=== PATIENT | female | born 1990 | race Two or more races ===

== ENCOUNTER 2019-04-14 12:12 | Emergency (ER) | payer OTHER ==
[~2019-04-14] VITALS: Ht 167.6 cm; Wt 52.2 kg
--- NOTE | 2019-04-14 12:20 | NUR ---
PATIENT IS AWAKE AND ALERT. URINE SENT TO LAB
[2019-04-14] MEDS ORDERED: IBUPROFEN 800 MG TABLET ONE (13:13)
[2019-04-14] MEDS ORDERED: IBUPROFEN 800 MG TABLET PO ONE (13:15)
[2019-04-14 13:20] LABS: *BILIRUBIN,URIN 1+ (NEGATIVE); *BLOOD, URINE NEGATIVE (NEGATIVE); *CLARITY,URINE CLEAR (CLEAR); *COLOR,URINE YELLOW (YELLOW); *KETONES,URINE NEGATIVE (NEGATIVE); *UROBILINOGEN,URINE 0.2 E.U./dl (NORMAL); LEUKOCYTE ESTERASE ,URINE NEGATIVE (NEGATIVE); NITRITE, URINE NEGATIVE (NEGATIVE); PH,URINE 5.5 (5.0-8.0); UGLUCOSE NEGATIVE (NEGATIVE)
[2019-04-14 13:23] LABS: *URINE HCG, QUAL NEGATIVE (NEGATIVE)
[2019-04-14 13:29] LABS: BACTERIA,URINE NONE SEEN /HPF (NONE SEEN); MUCUS,URINE MANY /LPF (0-FEW); SQUAMOUS EPITHELIAL CELL,UR FEW /HPF (NONE SEEN); WBC,URINE 0-3 /HPF (0-3)
--- NOTE | 2019-04-14 14:22 | NUR ---
DR PAUL AT BEDSIDE SPEAKING TO PATIENT ABOUT TEST RESULTS AND PLAN/
--- NOTE | 2019-04-14 14:40 | NUR ---
DC, RX (INCLUDING NORCO PRECAUTIONS) AND FOLLOW UP INSTRUCTIONS GIVEN AND EXPLAINED TO PATIENT WHO STATES SHE UNDERSTANDS ALL INSTRUCTIONS.
== END 2019-04-14 14:43 | disposition home or self-care (01) ==
LOC: ER 12:12
DX: M54.5 Low back pain (principal); Z88.8 Allergy status to other drugs, medicaments and biological substances
CPT/HCPCS: 84703; A4663